=== PATIENT | male | born 1965 | race Caucasian/White ===

== ENCOUNTER 2017-04-28 20:57 | Emergency (ER) | payer OTHER ==
--- NOTE | 2017-04-28 21:49 | PDOC ---
History of Present Illness - General Chief Complaint: Irregular Heart Beat Stated Complaint: HEART FLUTTER Time Seen by Provider: 04/28/17 21:11 - History of Present Illness Initial Comments: This otherwise healthy 52-year-old man presents with a one-day history of intermittent vibratory sensation of the left upper chest. Sensation is described as identical to that of vibrating phone. Episodes last for seconds and are not related to position/deep breathing. Although he denies feeling a sensation more frequently with exertion, he states that he did feel it a few times while climbing his [address] step staircase into his home. He denies pain/ shortness of breath/nausea/diaphoresis. He states that sensation is not similar to that of extra heartbeat or strong heartbeat. No recent fever/ chills. No recent vomiting/diarrhea or other reason for fluid loss. He states that he has not consumed caffeine in 5 years. Other than borderline hyperlipidemia, patient has no cardiac risk factors PMH History of cardiac murmur as an MVP diagnosed approximately 30 years ago; no recent manifestations or diagnostic testing Past History - Past Medical History Allergies/Adverse Reactions: Allergies Allergy/AdvReac Type Severity Reaction Status Date / Time No Known Allergies Allergy Verified 04/28/17 21:36 Home Medications: Ambulatory Orders NK [No Known Home Medication] 04/28/17 Review of Systems - Review of Systems Able to Perform ROS?: Yes Comments:: 12 point review of systems is negative except for what is noted in the history of present illness *Physical Exam - Vital Signs Last Vital Signs Temp Pulse Resp BP Pulse Ox 98.7 F 69 20 148/97 97 04/28/17 20:58 04/28/17 20:58 04/28/17 20:58 04/28/17 20:58 04/28/17 20:58 - Physical Exam Comments: GENERAL: Adult male, alert and oriented 3, in no acute distress HEAD: Normal with no signs of trauma. EYES: PERRLA, EOMI, sclera anicteric, conjunctiva clear. ENT: Ears normal, nares patent, oropharynx clear without exudates. Dry mucous membranes. NECK: Normal range of motion, supple without lymphadenopathy, JVD, or masses. LUNGS: Breath sounds equal, clear to auscultation bilaterally. No wheezes, and no crackles. HEART:Regular rate and rhythm, normal S1 and S2 without murmur, rub or gallop. ABDOMEN:.normal bowel sounds No guarding,tenderness or rebound.No masses No distention. EXTREMITIES: Normal range of motion, no edema. No clubbing or cyanosis. No erythema, or tenderness. NEUROLOGICAL: Cranial nerves II through XII grossly intact. Normal speech. No focal neurological deficits. MUSCULOSKELETAL: Back non-tender to palpation, no CVA tenderness SKIN: Warm, Dry, normal turgor, no rashes or lesions noted. 12-lead electrocardiogram is performed and shows normal sinus rhythm at 65 bpm; axis, intervals and wave forms are all normal. No evidence of acute ST or T- wave abnormalities. No extrasystoles seen on rhythm strip While patient was being interviewed, he had recurrence of sensation for a few seconds. sales product specialist showed no evidence of arrhythmia correlated with the sensation ED Treatment Course - LABORATORY CBC & Chemistry Diagram: 04/28/17 22:15 04/28/17 22:21 - ADDITIONAL ORDERS Additional order review: Laboratory Results 04/28/17 22:21 Sodium 139 Potassium 4.1 Chloride 106 Carbon Dioxide 22 Anion Gap 11 BUN 15 Creatinine 0.9 Creat Clearance w eGFR > 60 Random Glucose 90 Calcium 9.3 Total Bilirubin 0.6 AST 20 ALT 23 Alkaline Phosphatase 44 Creatine Kinase 195 Creatine Kinase Index 0.7 CK-MB (CK-2) 1.5 Troponin I < 0.03 L Total Protein 6.7 Albumin 4.1 04/28/17 22:15 RBC 4.64 MCV 92.2 MCHC 33.4 RDW 12.5 MPV 8.5 Neutrophils % 52.6 Lymphocytes % 35.7 Monocytes % 9.1 Eosinophils % 1.0 Basophils % 1.6 Progress Note - Progress Note Progress Note: Laboratory evaluation including cardiac enzymes are all normal. Patient discharged instructions to follow-up with his general doctor within the next 2 days. He should return to ER or see his doctor sooner if he has worsening of his symptoms or experiences chest pain/shortness of breath/nausea *DC/Admit/Observation/Transfer Diagnosis at time of Disposition: Palpitations - Discharge Dispostion Disposition: HOME Condition at time of disposition: Stable - Referrals - Patient Instructions Printed Discharge Instructions: DI for Atypical Chest Pain Additional Instructions: Rest; drink plenty of fluids Follow-up with your doctor within 2 days Return to ER immediately if you have chest pain/persistent palpitations - Post Discharge Activity
[2017-04-28 22:01] VITALS: BP 148/97; PULSE 69; TEMP 98.7; BMI 32.3
[2017-04-28 22:32] LABS: BASOPHIL 1.6 % (0-2.0); MCH 30.8 pg (25.7-33.7); MCHC 33.4 g/dl (32.0-35.9); MEAN CELL VOLUME 92.2 fl (80-96); MEAN PLT VOLUME 8.5 fl (7.5-11.1); NEUTROPHILS 52.6 % (42.8-82.8); PLATELET COUNT 187 K/MM3 (134-434); RDW 12.5 % (11.9-15.9); WHITE BLOOD COUNT 5.3 K/mm3 (4.0-10.8)
[2017-04-28 22:46] LABS: ALBUMIN 4.1 g/dl (3.5-5.0); ALK PHOS 44 U/L (32-92); ANION GAP 11 (8-16); BILIRUBIN,TOTAL 0.6 mg/dl (0.2-1.0); CALCIUM 9.3 mg/dl (8.4-10.2); CO2 22 mmol/L (22-28); CPK 195 IU/L (39-308); CREATININE 0.9 mg/dl (0.6-1.3); GLUCOSE,RANDOM 90 mg/dl (74-106); SGOT/AST 20 U/L (10-42); SGPT/ALT 23 U/L (10-40); TOT PROT 6.7 g/dl (6.4-8.3)
[2017-04-28 23:00] LABS: TROPONIN I (DFP) < 0.03 ng/ml (0.03-0.50)
--- NOTE | 2017-05-01 11:19 | EKG ---
Test Reason : Blood Pressure : / mmHG Vent. Rate : 065 BPM Atrial Rate : 065 BPM P-R Int : 166 ms QRS Dur : 082 ms QT Int : 394 ms P-R-T Axes : 031 -28 -07 degrees QTc Int : 409 ms POOR DATA QUALITY, INTERPRETATION MAY BE ADVERSELY AFFECTED NORMAL SINUS RHYTHM WITH SINUS ARRHYTHMIA MODERATE VOLTAGE CRITERIA FOR LVH, MAY BE NORMAL VARIANT BORDERLINE ECG NO PREVIOUS ECGS AVAILABLE Confirmed by EBEN MILNER, ELAINE ([id number]) on 05/01/2017 11:18:59 AM Referred By: MD WALLIS Confirmed By:ELAINE TREADWELL MD
== END 2017-04-28 23:31 | disposition home or self-care (01) ==
LOC: FER 20:57
DX: R00.2 Palpitations (principal)
CPT/HCPCS: 36415; 80053; 82550; 82553; 84484; 85025; 93005; 99284-25